=== PATIENT | male | born 1985 | race Caucasian/White ===

== ENCOUNTER 2021-01-15 21:32 | Emergency (ER) | payer MEDICAID ==
[~2021-01-15] VITALS: Ht 185.4 cm; Wt 98.0 kg
[2021-01-15 21:36] VITALS: BP 133/86
== END 2021-01-16 00:10 | disposition left against medical advice (07) ==
LOC: ER 21:32
DX: Z53.21 Procedure and treatment not carried out due to patient leaving prior to being seen by health care provider (principal)

== ENCOUNTER 2021-03-03 09:02 | Emergency (ER) | payer MEDICAID ==
[~2021-03-03] VITALS: Ht 182.9 cm; Wt 105.0 kg
[2021-03-03] MEDS ORDERED: CYCLOBENZAPRINE 10MG TABLET PO ONE (09:30)
[2021-03-03] MEDS ORDERED: KETOROLAC 60MG/2ML VIAL IM ONE (09:30)
[2021-03-03] MEDS ORDERED: IBUP-2029 MT (10:55)
[2021-03-03] MEDS ORDERED: DIAZ5TAB MT (10:55)
[2021-03-03] MEDS ORDERED: HYDROCODONE/ACETAMINOPHEN 5/325MG TABLET PO ONE (11:00)
[2021-03-03 11:10] VITALS: BP 128/84
== END 2021-03-03 11:11 | disposition home or self-care (01) ==
LOC: ER 09:05
DX: M54.5 Low back pain (principal); F17.200 Nicotine dependence, unspecified, uncomplicated; F12.10 Cannabis abuse, uncomplicated; I10 Essential (primary) hypertension; Z98.890 Other specified postprocedural states
CPT/HCPCS: 96372; 99283; J1885; Z7610